=== PATIENT | male | born 1955 | race Two or more races ===

== ENCOUNTER 2018-12-04 20:19 | Inpatient (IN) | payer OTHER ==
[~2018-12-04] VITALS: Ht 172.7 cm; Wt 90.7 kg
[2018-12-04] MEDS ORDERED: TROPOL PO (20:27)
[2018-12-04] MEDS ORDERED: COZAAR100 MG PO (20:27)
[2018-12-04] MEDS ORDERED: PLAVIX75 MG PO (20:27)
[2018-12-04] MEDS ORDERED: ASPIR 8181 MG PO (20:28)
[2018-12-04] MEDS ORDERED: TENTRAL PO (20:28)
[2018-12-09] MEDS ORDERED: CIPRO500 MG PO (10:57)
[2018-12-09] MEDS ORDERED: AMOX1TAB5 PO (10:57)
== END 2018-12-09 11:19 | disposition home or self-care (01) | DRG 334 ==
LOC: ER 20:19 → SEC-K 12-05 07:22 → SURG 12-05 07:22
PROVIDERS: ADMIT Surgery
PROC: 0DBP0ZZ Excision of Rectum, Open Approach (ICD-10-PCS; 2018-12-05)
PROC: 0DBQ0ZZ Excision of Anus, Open Approach (ICD-10-PCS; 2018-12-05)
PROC: 3E0T3BZ Introduction of Anesthetic Agent into Peripheral Nerves and Plexi, Percutaneous Approach (ICD-10-PCS; 2018-12-05)
PROC: 0D9Q0ZZ Drainage of Anus, Open Approach (ICD-10-PCS; principal; 2018-12-05 08:00)
DX: K61.0 Anal abscess (principal); I73.89 Other specified peripheral vascular diseases; I10 Essential (primary) hypertension; R50.9 Fever, unspecified; Z72.0 Tobacco use

== ENCOUNTER 2021-04-25 07:58 | Inpatient (IN) | payer OTHER ==
[~2021-04-25 07:58] MED LIST: AMOX1TAB5 PO; ASPIR 8181 MG PO; CIPRO500 MG PO; COZAAR100 MG PO; PLAVIX75 MG PO; PLETAL PO; TENTRAL PO; TOPROL XL25 M1 PO; TROPOL PO
[2021-04-26] MEDS ORDERED: PANTOPRAZOLE SO40 MG (08:02)
[2021-04-26] MEDS ORDERED: FENOFIBRATE48 MG (08:02)
[2021-04-26] MEDS ORDERED: AMLODIPINE BESYL5 MG (08:02)
[2021-04-26] MEDS ORDERED: CILOSTAZOL100 MG (08:02)
[2021-04-26] MEDS ORDERED: ATORVASTATIN CA40 MG (08:02)
[2021-04-26] MEDS ORDERED: FOLIC ACID1 MG (08:03)
== END 2021-04-30 12:48 | disposition home health service (06) | DRG 349 ==
LOC: CIR.AMB 07:58 → O/R 14:18 → SURG 15:57
PROVIDERS: ADMIT Surgery; ATTEND Surgery
PROC: 0DQQ7ZZ Repair Anus, Via Natural or Artificial Opening (ICD-10-PCS; 2021-04-25)
PROC: 0D9Q70Z Drainage of Anus with Drainage Device, Via Natural or Artificial Opening (ICD-10-PCS; principal; 2021-04-25 11:30)
DX: K61.0 Anal abscess (principal); Z20.822 Contact with and (suspected) exposure to COVID-19; I10 Essential (primary) hypertension

== ENCOUNTER 2022-02-15 12:56 | Inpatient (IN) | payer OTHER ==
[~2022-02-15] VITALS: Ht 165.1 cm; Wt 81.6 kg
[~2022-02-15 12:56] MED LIST changes: +AMLODIPINE BESYL5 MG; +ATORVASTATIN CA40 MG; +CILOSTAZOL100 MG; +FENOFIBRATE48 MG; +FOLIC ACID1 MG; +PANTOPRAZOLE SO40 MG
--- NOTE | 2022-02-15 13:17 | NUR ---
SE RECIBE PTE AMBULANCIA ALERTA Y ORIENTADO X3. FAMILIAR DE PTE INDICA PTE LLEVA SUPURANDO POR EL ANO DESDE HACE APROX VALENTINO SEMANA. REFIERE MYRIAM SIDO OPERADO HACE APROXIMADAMENTE UN ANO. SE MONITOREAN S/V Y SE UBICA PTE.
--- NOTE | 2022-02-15 13:26 | NUR ---
DRA. ALMEIDA EVALUA A PTE QUIEN [place] MED[place]. BUZZ JOHNSON ORIENTA A PTE SOBRE [place] MED[place] A RECIBIR, LAVONNE Y VANEGAS FAMILIAR REFIERE ENTENDER. BUZZ JOHNSON REALIZA MUESTRAS DE LABORATORIO, LAS ROT[place] Y LAS ENVIA A LABORATORIO. PTE EN ESPERA PARA REALIZARSE CT
[2022-02-18] MEDS ORDERED: PANTOPRAZOLE SO40 MG (10:39)
[2022-02-18] MEDS ORDERED: ROSUVASTATIN CA40 MG (10:39)
[2022-02-21] MEDS ORDERED: CIPRO500 MG PO (07:19)
[2022-02-21] MEDS ORDERED: INTESTINEX680 M1 PO (07:19)
[2022-02-21] MEDS ORDERED: METRONIDAZOLE500 MG PO (07:19)
[2022-02-21] MEDS ORDERED: JUVEN PACKET1 EAC1 PO (07:20)
[2022-02-21] MEDS ORDERED: ULTRAM50 MG PO (07:20)
== END 2022-02-21 10:15 | disposition home or self-care (01) | DRG 394 ==
LOC: ER 12:56 → SEC-K 18:32 → SURH 18:32
PROVIDERS: ADMIT Surgery; ATTEND Surgery
PROC: BW211ZZ Computerized Tomography (CT Scan) of Abdomen and Pelvis using Low Osmolar Contrast (ICD-10-PCS; principal; 2022-02-16)
DX: K61.2 Anorectal abscess (principal); L02.31 Cutaneous abscess of buttock; B96.29 Other Escherichia coli [E. coli] as the cause of diseases classified elsewhere; B96.6 Bacteroides fragilis [B. fragilis] as the cause of diseases classified elsewhere; B96.1 Klebsiella pneumoniae [K. pneumoniae] as the cause of diseases classified elsewhere; B96.89 Other specified bacterial agents as the cause of diseases classified elsewhere; I10 Essential (primary) hypertension; F17.210 Nicotine dependence, cigarettes, uncomplicated; I73.89 Other specified peripheral vascular diseases; Z20.822 Contact with and (suspected) exposure to COVID-19

== ENCOUNTER 2022-05-29 06:47 | Day surgery (SDC) | payer OTHER ==
[~2022-05-29] VITALS: Ht 165.1 cm; Wt 82.6 kg
[~2022-05-29 06:47] MED LIST changes: +INTESTINEX680 M1 PO; +JUVEN PACKET1 EAC1 PO; +METRONIDAZOLE500 MG PO; +PEPCID AC20 MG PO; +ROSUVASTATIN CA40 MG; +ULTRAM50 MG PO
[2022-05-29] MEDS ORDERED: HIBICLENS118 ML TOP (15:22)
[2022-05-29] MEDS ORDERED: ULTRAM50 MG PO (15:22)
[2022-05-29] MEDS ORDERED: NEURONTIN300 MG PO (15:22)
[2022-05-29] MEDS ORDERED: AMOX1TAB5 PO (15:24)
== END 2022-05-29 17:25 | disposition home or self-care (01) ==
LOC: CIR.AMB 06:47
PROVIDERS: ATTEND Surgery
DX: K60.3 Anal fistula (principal); Z20.822 Contact with and (suspected) exposure to COVID-19; I10 Essential (primary) hypertension; R33.8 Other retention of urine; Z85.12 Personal history of malignant neoplasm of trachea; F17.210 Nicotine dependence, cigarettes, uncomplicated